=== PATIENT | female | born 1970 | race Caucasian/White ===

== ENCOUNTER 2017-01-10 18:26 | Emergency (ER) | payer BC ==
[2017-01-10 18:58] VITALS: BP 141/75
[2017-01-10] MEDS ORDERED: Tetan/Diph/Pertus SYR(Tdap)* 0.5 ML SYR(BOOSTRIX) use SYR IM ONE (19:11)
--- NOTE | 2017-01-10 19:12 | UC ---
UC General HPI - HPI Summary HPI Summary: complaint of stepping on a kelvin nail last night right foot no pain or tenderness to dya able to ambulate without difficulty not taking anything for pain not UTD on tetanus - History of Current Complaint Chief Complaint: UCWounds Stated Complaint: STEPPED ON KELVIN NAIL Hx Obtained From: Patient Hx Last Menstrual Period: q months - Allergy/Home Medications Allergies/Adverse Reactions: Allergies Allergy/AdvReac Type Severity Reaction Status Date / Time No Known Allergies Allergy Verified 01/10/17 18:58 PMH/Surg Hx/FS Hx/Imm Hx Previously Healthy: Yes Endocrine History: Hypothyroidism - Surgical History Surgical History: Yes Surgery Procedure, Year, and Place: Colecystectomy, Appendectomy, D&C's - Family History Known Family History: Negative: Cardiac Disease, Hypertension, Diabetes - Social History Occupation: Employed Full-time Lives: With Family Alcohol Use: Occasionally Substance Use Type: None Smoking Status (MU): Never Smoked Tobacco - Immunization History Most Recent Tetanus Shot: Needs Review of Systems Constitutional: Negative Skin: Other - puncture wound Eyes: Negative ENT: Negative Respiratory: Negative Cardiovascular: Negative Gastrointestinal: Negative Genitourinary: Negative Motor: Negative Neurovascular: Negative Musculoskeletal: Negative Neurological: Negative Psychological: Negative All Other Systems Reviewed And Are Negative: Yes Physical Exam Triage Information Reviewed: Yes Appearance: No Pain Distress, Well-Nourished Vital Signs: Initial Vital Signs Temp 98.8 F 01/10/17 18:55 Pulse 80 01/10/17 18:55 Resp 18 01/10/17 18:55 BP 141/75 01/10/17 18:55 Pulse Ox 100 01/10/17 18:55 Vital Signs Reviewed: Yes Respiratory: Positive: Lungs clear, Normal breath sounds, No respiratory distress, No accessory muscle use Cardiovascular: Positive: RRR, No Murmur, Pulses Normal Neurological: Positive: Alert Psychological Exam: Normal Skin Exam: Other - right foot with tiny puncture wound benaeth great toe- no erythema or edema surrounding wound Course/Dx - Differential Dx - Multi-Symptom Differential Diagnoses: Other - puncture wound Provider Diagnoses: puncture wound Discharge - Discharge Plan Condition: Stable Disposition: HOME Patient Education Materials: Diphtheria/Acellular Pertussis/Tetanus Vaccine ( By injection), Puncture Wound (ED) Referrals: Dottie Mckee MD [Primary Care Provider] - Additional Instructions: Please review your discharge instructions. If your symptoms do not improve please call your primary care provider or return to urgent care.
== END 2017-01-10 19:29 | disposition home or self-care (01) ==
LOC: UCEAST 18:26
DX: S91.331A Puncture wound without foreign body, right foot, initial encounter (principal); W22.8XXA Striking against or struck by other objects, initial encounter; Y93.9 Activity, unspecified; Y92.9 Unspecified place or not applicable; Y99.9 Unspecified external cause status
CPT/HCPCS: 90715; 96372; 99201; G0463